=== PATIENT | male | born 1965 | race Caucasian/White ===

== ENCOUNTER 2020-07-19 11:16 | Emergency (ER) | payer SELFPAY ==
[~2020-07-19] VITALS: Ht 162.6 cm; Wt 65.8 kg
[2020-07-19 11:20] VITALS: BP 140/108
[2020-07-19] MEDS ORDERED: LIDOCAINE MPF 1% 10 MG/ML VIAL INJ ONE (11:30)
--- NOTE | 2020-07-19 11:39 | NUR ---
IRRIGATED PT RIGHT ARM WITH SALINE WITHOUT ANY ISSUES
--- NOTE | 2020-07-19 11:50 | NUR ---
PT TAKEN TO X-RAY VIA W/C.
[2020-07-19] MEDS ORDERED: BACITRACIN OINT 500 UNITS/GM PKT TP ONE ×3 (12:25→12:30)
--- NOTE | 2020-07-19 12:31 | NUR ---
applied dressing to right arm without any issues
[2020-07-19 12:37] VITALS: BP 140/108
--- NOTE | 2020-07-19 12:37 | NUR ---
Patient discharged with v/s stable. Written and verbal after care instructions given and explained. Patient verbalized understanding. Ambulatory with steady gait. All questions addressed prior to discharge. Advised to follow up with PMD.
== END 2020-07-19 12:37 | disposition home or self-care (01) ==
LOC: MED 11:16
DX: S51.811A Laceration without foreign body of right forearm, initial encounter (principal); W20.8XXA Other cause of strike by thrown, projected or falling object, initial encounter; Y93.89 Activity, other specified; Y92.89 Other specified places as the place of occurrence of the external cause; Y99.8 Other external cause status
CPT/HCPCS: 12002; 73090; 90471; 90715; 99283; J2001

== ENCOUNTER 2020-07-22 18:28 | Emergency (ER) | payer MEDICAID ==
[~2020-07-22] VITALS: Ht 160 cm; Wt 66.2 kg
[2020-07-22 18:44] VITALS: BP 106/69
--- NOTE | 2020-07-22 18:48 | NUR ---
PT SENT TO LOBBY TO WAIT FOR AVAILABLE BED.
--- NOTE | 2020-07-22 19:06 | NUR ---
PATIENT TAKEN TO THE [facility] TO BE EXAMINED BY ERMD.
--- NOTE | 2020-07-22 19:12 | NUR ---
[facility]MD EVALUATING PATIENT IN [facility].
[2020-07-22] MEDS ORDERED: BACITRACIN OINT 500 UNITS/GM PKT TP ONE (19:15)
[2020-07-22] MEDS ORDERED: BACI1PAC6 TP (19:25)
[2020-07-22 19:30] VITALS: BP 106/69
== END 2020-07-22 19:30 | disposition home or self-care (01) ==
LOC: MED 18:28
DX: S51.811D Laceration without foreign body of right forearm, subsequent encounter (principal); Z48.00 Encounter for change or removal of nonsurgical wound dressing; W26.8XXD Contact with other sharp object(s), not elsewhere classified, subsequent encounter
CPT/HCPCS: 99282

== ENCOUNTER 2020-07-31 20:00 | Emergency (ER) | payer MEDICAID ==
[~2020-07-31] VITALS: Ht 160 cm; Wt 63.5 kg
[~2020-07-31 20:00] MED LIST: BACI1PAC6 TP
[2020-07-31 20:03] VITALS: BP 148/69
[2020-07-31 21:24] VITALS: BP 148/69
== END 2020-07-31 21:24 | disposition left against medical advice (07) ==
LOC: MED 20:00
DX: Z48.02 Encounter for removal of sutures (principal); Z53.21 Procedure and treatment not carried out due to patient leaving prior to being seen by health care provider